=== PATIENT | female | born 1955 | race African-American/Black ===

== ENCOUNTER 2020-12-17 20:14 | Emergency (ER) | payer OTHER ==
[~2020-12-17] VITALS: Ht 165.1 cm; Wt 86.2 kg
[2020-12-17 20:20] VITALS: BP_SYST 167
[2020-12-17 21:11] LABS: BILIRUBIN,URINE NEGATIVE (NEGATIVE); BLOOD, URINE NEGATIVE (NEGATIVE); CLARITY/URINE CLEAR (CLEAR); GLUCOSE,URINE NEGATIVE (NEGATIVE); KETONES,URINE NEGATIVE (NEGATIVE); LEUKOCYTE ESTERASE ,URINE NEGATIVE (NEGATIVE); NITRITE, URINE NEGATIVE (NEGATIVE); PROTEIN URINE NEGATIVE (NEGATIVE); UROBILINOGEN,URINE 0.2 (0.2-1.0)
[2020-12-17 21:18] LABS: COLOR,URINE STRAW (YELLOW)
[2020-12-17 21:24] LABS: BARBITURATE, URINE NEGATIVE (NEG <=200); BENZODIAZEPINE, URINE NEGATIVE (NEG <=150); CANNABINOID, URINE NEGATIVE (NEG <=50); COCAINE, URINE NEGATIVE (NEG <=150); METHAMPHETAMINES SCREEN,URINE NEGATIVE (NEG <=500); OPIATE, URINE NEGATIVE (NEG <=100); PHENCYCLIDINE SCREEN,URINE NEGATIVE (NEG <=25); UR TRICYCLIC ANTIDEPRESSANTS NEGATIVE (NEG <=300); URINE AMPHETAMINE NEGATIVE (NEG <=500); URINE METHADONE NEGATIVE (NEG <=200); URINE OXYCODONE SCREEN NEGATIVE (NEG <=100); URINE PROPOXYPHENE SCREEN NEGATIVE (NEG <=300)
[2020-12-17 21:48] LABS: BASOPHILS % (AUTO) 0.6 % (0.0-2.0); EOSINOPHILS # (AUTO) 0.1 K/uL (0.0-0.4); HEMATOCRIT 39.6 % (36-48); HEMOGLOBIN 12.7 g/dL (12.0-16.0); LYMPHOCYTES # (AUTO) 1.7 K/uL (1.0-5.5); LYMPHOCYTES % (AUTO) 22.6 % (20.5-51.5); MEAN CORPUSCULAR HEMOGLOBIN 28 pg (27-31); MEAN CORPUSCULAR HGB CONC 32 % (32-36); MEAN CORPUSCULAR VOLUME 86 fL (79.0-98.0); MONOCYTES # (AUTO) 0.6 K/uL (0.0-1.0); MONOCYTES % (AUTO) 7.3 % (1.7-9.3); NEUTROPHILS # (AUTO) 5.1 K/uL (1.8-7.7); NEUTROPHILS % (AUTO) 67.5 % (40.0-70.0); PLATELET COUNT (AUTO) 281 K/uL (130-430); RED CELL DISTRIBUTION WIDTH 15.2 % (9.0-15.0); WHITE BLOOD COUNT (AUTO) 7.6 K/uL (4.8-10.8)
[2020-12-17 21:54] LABS: ANION GAP 9 (5-15); CALCIUM 9.6 mg/dL (8.4-11.0); CHLORIDE 106 mmol/L (98-107); CREATININE 0.97 mg/dL (0.55-1.30); GLUCOSE 116 mg/dL (70-99); POTASSIUM 5.3 mmol/L (3.5-5.1); SODIUM SERUM 147 mmol/L (136-145); UREA NITROGEN, BLOOD 15 mg/dL (8-21)
[2020-12-17 22:00] LABS: ALANINE AMINOTRANSFERASE 29 U/L (12-78); ALBUMIN 4.1 g/dL (3.4-4.8); ASPARTATE AMINOTRANSFERASE 13 U/L (10-37); TOTAL BILIRUBIN 0.1 mg/dL (0.0-1.0)
[2020-12-17 22:03] LABS: ALCOHOL, BLOOD < 3 mg/dL (<10); GFR AFRICAN AMERICAN 74 mL/min (>90)
[2020-12-17 22:04] LABS: ACETAMINOPHEN < 1 ug/mL (1-30)
[2020-12-17 22:14] LABS: CHOLESTEROL 307 mg/dL (<200); HDL CHOLESTEROL 59 mg/dL (>55); LDL CHOLESTEROL 207 mg/dL (<100); TRIGLYCERIDES 223 mg/dL (30-150)
[2020-12-18 01:43] VITALS: BP_SYST 118
== END 2020-12-18 01:43 ==
LOC: SED 20:14
DX: R45.6 Violent behavior (principal); R45.1 Restlessness and agitation; Z20.822 Contact with and (suspected) exposure to COVID-19
CPT/HCPCS: 36415; 80053; 80061; 80307; 81003; 83036; 85025; 87081; 87426; 99285; G0480; G0481; G0482

== ENCOUNTER 2021-04-16 03:18 | Emergency (ER) | payer OTHER, MEDICAID, SELFPAY ==
[~2021-04-16] VITALS: Ht 170.2 cm; Wt 95.3 kg
[2021-04-16 03:25] VITALS: BP_SYST 120
[2021-04-16 03:56] VITALS: BP_SYST 120
[2021-04-27] MEDS ORDERED: LIP20 PO (00:53)
[2021-04-27] MEDS ORDERED: RISP1TAB7 PO (00:53)
[2021-04-27] MEDS ORDERED: DIVA-72 PO (00:53)
[2021-04-27] MEDS ORDERED: ESCI10TA PO (00:53)
[2021-04-27] MEDS ORDERED: BENZ0.5T43 PO (00:53)
[2021-04-27] MEDS ORDERED: LORA2TAB95 PO (00:53)
[2021-04-27] MEDS ORDERED: ZINC50TA69 PO (00:53)
[2021-04-27] MEDS ORDERED: DOCU-144 PO (00:53)
[2021-04-27] MEDS ORDERED: DEPS125 PO (00:53)
[2021-04-27] MEDS ORDERED: VITD2000 PO (00:53)
[2021-04-27] MEDS ORDERED: ASCO500T10 PO (00:53)
[2021-04-27] MEDS ORDERED: RISP2TAB5 PO (00:53)
== END 2021-04-16 04:00 | disposition home or self-care (01) ==
LOC: SED 03:18
DX: S60.442A External constriction of right middle finger, initial encounter (principal); Z79.899 Other long term (current) drug therapy; W49.04XA Ring or other jewelry causing external constriction, initial encounter; Y93.89 Activity, other specified; Y92.89 Other specified places as the place of occurrence of the external cause; Y99.8 Other external cause status
CPT/HCPCS: 99284